=== PATIENT | male | born 1975 | race Caucasian/White ===

== ENCOUNTER 2018-04-24 12:18 | Emergency (ER) | payer OTHER ==
[2018-04-24 13:03] VITALS: BP 130/81
--- NOTE | 2018-04-24 13:14 | UC ---
UC General HPI - HPI Summary HPI Summary: pt c/o 3-4 day hx of rash on his face, trunk and inner thighs. he thinks they may be bites. he reports a sense of not feeling very well with this. no fever. ? hx MRSA as a child. Denies drug use. Admits to sever anxiety when questioned, admits to picking at the sites. Denies mental health diagnosis. pt noted to be sweating and states that is from being anxious from being here. - History of Current Complaint Chief Complaint: [place] Stated Complaint: SKIN COMPLAINT Time Seen by Provider: 04/24/18 13:04 Hx Obtained From: Patient Pain Intensity: 5 Alleviating: nothing Associated Signs & Symptoms: Negative: Fever - Allergy/Home Medications Allergies/Adverse Reactions: Allergies Allergy/AdvReac Type Severity Reaction Status Date / Time Penicillins Allergy Rash Verified 04/24/18 12:59 PMH/Surg Hx/FS Hx/Imm Hx - Additional Past Medical History Additional PMH: ? MRSA - Surgical History Surgical History: None - Social History Alcohol Use: Rare Substance Use Type: None Smoking Status (MU): Heavy Every Day Tobacco Smoker Amount Used/How Often: 1/2 PPD Length of Time of Smoking/Using Tobacco: Since Age 17 Review of Systems All Other Systems Reviewed And Are Negative: Yes Constitutional: Positive: Fatigue Skin: Positive: Rash Eyes: Positive: Negative ENT: Positive: Negative Respiratory: Positive: Negative Cardiovascular: Positive: Negative Gastrointestinal: Positive: Negative Genitourinary: Positive: Negative Motor: Positive: Negative Neurovascular: Positive: Negative Musculoskeletal: Positive: Negative Neurological: Positive: Negative Psychological: Positive: Negative Is Patient Immunocompromised?: No Physical Exam Triage Information Reviewed: Yes Appearance: Well-Appearing Vital Signs: Initial Vital Signs Temp 98 F 04/24/18 12:55 Pulse 70 04/24/18 12:55 Resp 16 04/24/18 12:55 BP 130/81 04/24/18 12:55 Pulse Ox 100 04/24/18 12:55 Vital Signs Reviewed: Yes Eyes: Positive: Conjunctiva Clear ENT: Positive: Pharynx normal, TMs normal, Other - No tremor to tongue.. Negative: Nasal congestion, Nasal drainage Neck: Positive: Supple, Nontender, No Lymphadenopathy Respiratory: Positive: Lungs clear, Normal breath sounds Cardiovascular: Positive: RRR, No Murmur. Negative: Tachycardia Abdomen Description: Positive: Nontender, No Organomegaly, Soft, Other: - No inguinal adenopathy.. Negative: Distended, Guarding Bowel Sounds: Positive: Present Musculoskeletal: Positive: ROM Intact, Other: - No tremor. Neurological: Positive: Alert Psychological: Positive: Age Appropriate Behavior Skin Exam: Other - Mellen and moist but dried as pt calmed with conversation. No tracks. Skin: Positive: Rashes - multipe areas with superficial erosions on face, R side of trunk, upper back and inner thighs that are c/w picking. L inner thigh has mild erythema c/w secondary cellulitis. Course/Dx - Differential Dx - Multi-Symptom Differential Diagnoses: Other - pt denies hx drug use and psychosis(seeing bugs) . no concern for infestations. exam c/w picking to which pt admits and with secondary cellulitis L inner thigh. also reports anxiety.will cover with doxycycline and bactroban given hx of ? MRSA. We called his pcp and were able secure a f/u for this sunday thus pt advised to return here for the recheck and go to ER for worsening. - Diagnoses Provider Diagnosis: Cellulitis, Anxiety, Skin-picking disorder Discharge - Sign-Out/Discharge Documenting (check all that apply): Patient Departure All imaging exams completed and their final reports reviewed: No Studies - Discharge Plan Condition: Stable Disposition: HOME Prescriptions: DOXYcycline CAP(*) [DOXYcycline 100MG CAP(*)] 100 mg PO BID 10 Days #20 cap Mupirocin 2% OINT* [Bactroban 2 % Oint*] 1 applic TOPICAL BID 7 Days #1 tube Patient Education Materials: Cellulitis (DC), Anxiety (ED), Dermatitis (ED) Referrals: Ana Villa MD [Medical Doctor] - As Soon As Possible Additional Instructions: THE CELLULITIS NEEDS TO BE RECHECKED IN 2-3 DAYS OR SOONER IF WORSE. - Billing Disposition and Condition Condition: STABLE Disposition: Home
== END 2018-04-24 13:31 | disposition home or self-care (01) ==
LOC: UCCORT 12:18 → EDBD 12:18 → UCCORT 13:31
DX: L03.116 Cellulitis of left lower limb (principal); F42.4 Excoriation (skin-picking) disorder; F41.9 Anxiety disorder, unspecified; F17.210 Nicotine dependence, cigarettes, uncomplicated; Z88.0 Allergy status to penicillin
CPT/HCPCS: 99202; G0463